=== PATIENT | female | born 1950 | race Caucasian/White ===

== ENCOUNTER 2018-10-09 21:42 | Inpatient (IN) | payer MEDICARE, OTHER ==
[~2018-10-09] VITALS: Ht 152.4 cm; Wt 69.5 kg
[~2018-10-09 21:42] MED LIST: ASPI325T32; BENA5TAB33; CITRACAL; CLOP75TA19; EZET10TA31; GLYB5TAB; METO-448; NITR0.4T32; SIMV40TA3
[2018-10-09] MEDS ORDERED: SOD CHLORIDE 0.9% 500 ML IV STA (21:48)
[2018-10-09] MEDS ORDERED: LIDOCAINE/MYLANTA 40 ML BTL PO ONE (23:30)
[2018-10-10] VITALS (11 sets, daily range): BP systolic 128–139; BP diastolic 68–83; PULSE 69–81; RESP 18–19
[2018-10-10] MEDS ORDERED: MTF1000T PO (00:03)
[2018-10-10] MEDS ORDERED: LOSA25TA12 PO (00:03)
[2018-10-10] MEDS ORDERED: ASPI-535 PO (00:03)
[2018-10-10] MEDS ORDERED: SITA100T11 PO (00:03)
[2018-10-10] MEDS ORDERED: METO-335 PO (00:25)
[2018-10-10] MEDS ORDERED: PRAS5TAB3 PO (00:25)
[2018-10-10] MEDS ORDERED: CRES20 PO (00:26)
[2018-10-10] MEDS ORDERED: FLUT16SP17 NASAL (00:26)
--- NOTE | 2018-10-10 00:47 | ERD ---
ER Documentation Chief Complaint Chief Complaint bib ra from home for cpressure since morning, HPI Is a 68-year-old female brought in by rescue from home for chest pressure since this morning. Pain is mild to moderate intensity with no exacerbating alleviating factors. Denies fevers or chills. Denies any other current complaints. Patient does have history of coronary artery disease with stents in the past. Denies any other current issues ROS All systems reviewed and are negative except as per history of present illness. Medications Home Meds Reported Medications Fluticasone Propionate* (Fluticasone Propionate* Nasal) 50 Mcg/[place] - 16 Gm [place].susp, 1 SPRAY NASAL BID, #1 BOTTLE TO EACH NOSTRIL 10/10/18 Rosuvastatin Calcium* (Crestor*) 20 Mg Tablet, 20 MG PO QHS, #30 TAB 10/10/18 Metoprolol Succinate* (Toprol XL*) 25 Mg Tab.sr.24h, 25 MG PO DAILY, #30 TAB 10/10/18 Prasugrel Hydrochloride* (Effient*) 5 Mg Tablet, 5 MG PO DAILY, TAB 10/10/18 Aspirin Ec (Aspir 81) 81 Mg Tablet.dr, 81 MG PO DAILY, #30 TAB 10/10/18 Sitagliptin* (Januvia*) 100 Mg Tablet, 100 MG PO DAILY, #30 TAB 10/10/18 Losartan Potassium* (Losartan Potassium*) 25 Mg Tablet, 25 MG PO DAILY, TAB 10/10/18 Metformin* (Glucophage*) 1,000 Mg Tablet, 1000 MG PO BID, #60 TAB 10/10/18 Clopidogrel Bisulfate (Plavix) 75 Mg Tablet 07/21/10 Discontinued Reported Medications Nitroglycerin* (Nitroglycerin* SL) 0.4 Mg Tab.subl 07/21/10 Benazepril Hcl* (Benazepril Hcl*) 5 Mg Tablet 07/21/10 Glyburide* (Diabeta*) 5 Mg Tablet 07/21/10 Metoprolol Tartrate* (Lopressor*) 25 Mg Tab 07/21/10 Aspirin (Aspir-Nati) 325 Mg Tablet.dr 07/21/10 Calcium Citrate (Citracal) 950 Mg Tab 07/21/10 Simvastatin (Simvastatin) 40 Mg Tablet 07/21/10 Ezetimibe* (Zetia*) 10 Mg Tablet 07/21/10 Allergies Allergies: Coded Allergies: No Known Allergy (Unverified , 10/09/18) PMhx/Soc History of Surgery: No Anesthesia Reaction: No Hx Neurological Disorder: No Hx Respiratory Disorders: No Hx Cardiac Disorders: Yes (MT, HTN, HYPERLIPIDEMIA) Hx Psychiatric Problems: No Hx Miscellaneous Medical Probl: No Hx Alcohol Use: No Hx Substance Use: No Hx Tobacco Use: No Smoking Status: Never smoker Physical Exam Vitals Vital Signs Date Temp Pulse Resp B/P (MAP) Pulse Ox O2 O2 Flow FiO2 Time Delivery Rate 10/10/18 69 17 111/63 98 Nasal 2.0 00:00 (79) Cannula 10/09/18 65 16 126/83 98 Room Air 22:00 (97) 10/09/18 98.1 71 19 126/89 100 21:48 (101) Physical Exam Const: No acute distress Head: Atraumatic Eyes: Normal Conjunctiva ENT: Normal External Ears, Nose and Mouth. Neck: Full range of motion. No meningismus. Resp: Clear to auscultation bilaterally Cardio: Regular rate and rhythm, no murmurs Abd: Soft, non tender, non distended. Normal bowel sounds Skin: No petechiae or rashes Back: No midline or flank tenderness Ext: No cyanosis, or edema Neur: Awake and alert Psych: Normal Mood and Affect Result Diagram: 10/09/18215310/09/182153 Results 24 hrs Laboratory Tests Test 10/09/18 21:54 White Blood Count 9.7 10^3/ul Red Blood Count 4.07 10^6/ul Hemoglobin 12.4 g/dl Hematocrit 37.5 % Mean Corpuscular Volume 92.1 fl Mean Corpuscular Hemoglobin 30.5 pg Mean Corpuscular Hemoglobin Concent 33.1 g/dl Red Cell Distribution Width 12.2 % Platelet Count 179 10^3/UL Mean Platelet Volume 10.2 fl Immature Granulocytes % 0.300 % Neutrophils % 48.5 % Lymphocytes % 40.9 % Monocytes % 6.3 % Eosinophils % 3.6 % Basophils % 0.4 % Nucleated Red Blood Cells % 0.0 /100WBC Immature Granulocytes # 0.030 10^3/ul Neutrophils # 4.7 10^3/ul Lymphocytes # 4.0 10^3/ul Monocytes # 0.6 10^3/ul Eosinophils # 0.4 10^3/ul Basophils # 0.0 10^3/ul Nucleated Red Blood Cells # 0.0 10^3/ul Sodium Level 140 mmol/L Potassium Level 4.0 mmol/L Chloride Level 101 mmol/L Carbon Dioxide Level 28 mmol/L Anion Gap 11 Blood Urea Nitrogen 16 mg/dl Creatinine 0.80 mg/dl Est Glomerular Filtrat Rate mL/min > 60 mL/min Glucose Level 108 mg/dl Calcium Level 9.7 mg/dl Total Bilirubin 0.5 mg/dl Direct Bilirubin 0.00 mg/dl Indirect Bilirubin 0.5 mg/dl Aspartate Amino Transf (AST/SGOT) 22 IU/L Alanine Aminotransferase (ALT/SGPT) 24 IU/L Alkaline Phosphatase 66 IU/L Troponin I < 0.012 ng/ml B-Type Natriuretic Peptide 305 PG/ML Total Protein 7.1 g/dl Albumin 4.4 g/dl Globulin 2.70 g/dl Albumin/Globulin Ratio 1.62 Lipase 143 U/L Current Medications Medications Dose Sig/Bowen Start Time Status Last (Trade) Ordered Route PRN Stop Time Admin Dose Reason Admin Sodium 500 ml @ Q1H STAT 10/09/18 DC 10/09/18 Chloride 500 mls/hr IV 21:48 22:15 10/09/18 22:47 40 ml ONCE ONCE 10/09/18 DC 10/09/18 Miscellaneous PO 23:30 23:30 Medication 10/09/18 23:31 (Gi Cocktail (2)) Procedures/MDM EKG: Rate/Rhythm: [Normal Sinus Rhythm] QRS, ST, T-waves: [No changes consistent w/ acute ischemia] Impression: [No evidence of ischemia or arrhythmia] Chest X-ray 1V Interpreted by me: Soft Tissue: No acute abnormalities Bones: No acute abnormalities Mediastinum/Cardiac Silhouette/Lungs: [No acute abnormalities] Medical decision making: Patient's symptoms are concerning for cardiac cause will require inpatient workup and continuous monitoring. Further w/u for ischemia, arrhythmia, PE or dissection will be deferred to the inpatient team. Accepting Care Team: Current data and ongoing care discussed. Time: 12:30 AM Primary Provider: Hospitalist Consulting: Deferred to inpatient team Outstanding Data: none Departure Diagnosis: Primary Impression: Chest pain Chest pain type: unspecified Qualified Codes: R07.9 - Chest pain, un specified Condition: Serious DARYA FLORES October 10, 2018 00:47
[2018-10-10] MEDS ORDERED: NITROGLYCERIN (SL) 0.4 MG TAB SL PRN (02:00)
[2018-10-10] MEDS ORDERED: ACETAMINOPHEN 325 MG TAB PO PRN (02:00)
[2018-10-10] MEDS ORDERED: ALBUTEROL/IPRATROPIUM (NEB) 3 ML AMP HHN PRN (02:00)
[2018-10-10] MEDS ORDERED: NACL 0.9% 3 ML SYG IV SCH (02:00)
[2018-10-10] MEDS ORDERED: ONDANSETRON 4 MG INJ IV PRN (02:00)
[2018-10-10] MEDS ORDERED: ACETAMINOPHEN 325 MG TAB ONE (02:07)
[2018-10-10] MEDS ORDERED: DEXTROSE 50% 50 ML SYRINGE IV PRN ×2 (04:00)
[2018-10-10] MEDS ORDERED: GLUCOSE GEL 15 GRAM TUBE BUCCAL PRN (04:00)
[2018-10-10] MEDS ORDERED: GLUCOSE GEL 15 GRAM TUBE PO PRN ×2 (04:00)
[2018-10-10] MEDS ORDERED: GLUCAGON 1 MG INJ IM PRN (04:00)
[2018-10-10] MEDS ORDERED: morphine 4 MG/ML VIAL IV STA (05:09)
--- NOTE | 2018-10-10 06:33 | HP ---
Date/Time of Note Date/Time of Note DATE: 10/10/18 TIME: 06:26 Assessment/Plan VTE Prophylaxis Pharmacological prophylaxis: heparin Lines/Catheters IV Catheter Type (from Nrsg): Saline Lock Assessment/Plan Assessment/Plan 1. Chest pain: Rule out ACS -Pain was relieved after he was given sublingual nitro and aspirin by EMS -Monitor on telemetry unit -Continue home dual antiplatelet, ARB, statin. As needed nitro. Heart rate has been in the 60s, therefore no beta-terrell at this time -Serial troponin -2D echo and cardiology consult -Pneumonia as a cause of chest pain is a possibility since chest x-ray does show Right perihilar consolidation and mild pulmonary vascular congestion. Given the fact that chest pain responded well to nitro however suggests a cardiac etiology Mild pulmonary vascular congestion. 2. History of CAD with stent: See #1 3. Headache: Follow-up head CT 4. History of hemorrhagic stroke, per patient: Diagnosed at [facility] in 2018 -Follow-up head CT. See #3 5. Right perihilar consolidation -Empiric IV antibiotic -Consider chest CT for further evaluation 6. History of dyslipidemia: Check fasting lipid. Continue statin and fenofibrate 7. Type 2 diabetes: Check A1c. Continue home med Result Diagram: 10/09/18215310/09/182153 Results 24hrs Laboratory Tests Test 10/09/18 21:54 10/10/18 02:34 White Blood Count 9.7 Red Blood Count 4.07 L Hemoglobin 12.4 Hematocrit 37.5 Mean Corpuscular Volume 92.1 Mean Corpuscular Hemoglobin 30.5 Mean Corpuscular Hemoglobin Concent 33.1 Red Cell Distribution Width 12.2 Platelet Count 179 Mean Platelet Volume 10.2 Immature Granulocytes % 0.300 Neutrophils % 48.5 Lymphocytes % 40.9 Monocytes % 6.3 Eosinophils % 3.6 Basophils % 0.4 Nucleated Red Blood Cells % 0.0 Immature Granulocytes # 0.030 Neutrophils # 4.7 Lymphocytes # 4.0 H Monocytes # 0.6 Eosinophils # 0.4 Basophils # 0.0 Nucleated Red Blood Cells # 0.0 Sodium Level 140 Potassium Level 4.0 Chloride Level 101 Carbon Dioxide Level 28 Anion Gap 11 Blood Urea Nitrogen 16 Creatinine 0.80 Est Glomerular Filtrat Rate mL/min > 60 Glucose Level 108 Calcium Level 9.7 Total Bilirubin 0.5 Direct Bilirubin 0.00 Indirect Bilirubin 0.5 Aspartate Amino Transf (AST/SGOT) 22 Alanine Aminotransferase (ALT/SGPT) 24 Alkaline Phosphatase 66 Troponin I < 0.012 0.032 B-Type Natriuretic Peptide 305 H Total Protein 7.1 Albumin 4.4 Globulin 2.70 Albumin/Globulin Ratio 1.62 Lipase 143 Creatine Kinase 44 Creatine Kinase Index 1.5 Creatinine Kinase MB (Mass) 0.65 HPI/ROS Admit Date/Time Admit Date/Time October 10, 2018 at 00:35 Hx of Present Illness This is a 68-year-old male with a history of hypertension, type 2 diabetes, dyslipidemia, CAD with stent who was brought to the ER for chest pain. Chest pain started in the morning and described as pressure-like pain and is nonradiating. Patient also reported shortness of breath. During my questioning, she also complains of headache. She told me that she was diagnosed with stroke and "blood in my brain"at [facility] in 2018. Denied any focal weakness, slurred speech, facial droop. When EMS arrived he was given a sublingual nitro and aspirin was complete relief of chest pain. When presented to the ER, vitals were stable. EKG without ST-T wave abnormalities and first troponin negative. Chest x-ray shows right perihilar consolidation and mild pulmonary vascular congestion. PMH/Family/Social Past Medical History Medical History: other (See HPI) Medications Current Medications IV Flush (NS 3 ml) 3 ml PER PROTOCOL IV ; Start 10/10/18 at 02:00 Ondansetron HCl (Zofran Inj) 4 mg Q6H PRN IV NAUSEA/VOMITING; Start 10/10/18 at 02:00 Nitroglycerin (Nitroglycerin (Sl Tab) 0.4 Mg) 1 tab Q5M PRN SL .CHEST PAIN; St art 10/10/18 at 02:00 Acetaminophen (Tylenol Tab) 650 mg Q6H PRN PO .PAIN 1-3 OR TEMP Last administe red on 10/10/18at 04:35; Admin Dose 650 MG; Start 10/10/18 at 02:00 Enoxaparin Sodium (Lovenox) 40 mg DAILY SC ; Start 10/10/18 at 09:00 Albuterol/ Ipratropium (Duoneb) 3 ml Q2H RESP THERAPY PRN HHN SHORTNESS OF BREATH; Start 10/10/18 at 02:00 Aspirin (Halfprin) 81 mg DAILY PO ; Start 10/10/18 at 09:00 Clopidogrel Bisulfate (plaVIX) 75 mg DAILY PO ; Start 10/10/18 at 09:00 Fluticasone Propionate (Flonase 0.05% Nasal) 1 spray BID NASAL ; Start 10/10/18 at 09:00 Losartan Potassium (Cozaar) 25 mg DAILY PO ; Start 10/10/18 at 09:00 Metformin HCl (Glucophage) 1,000 mg BID WITH MEALS PO ; Start 10/10/18 at 07:55 Metoprolol Succinate (Toprol Xl) 25 mg DAILY PO ; Start 10/10/18 at 09:00 Atorvastatin Calcium (Lipitor) 80 mg DAILY@21 PO ; Start 10/10/18 at 21:00 Linagliptin (Tradjenta) 5 mg DAILY PO ; Start 10/10/18 at 09:00 Diagnostic Test (Pha) (Accu-Chek) 1 ea AC MEALS AND BEDTIME XX ; Start 10/10/18 at 07:25 Miscellaneous Information 1 ea NOTE XX ; Start 10/10/18 at 04:00 Glucose (Glutose) 15 gm Q15M PRN PO DECREASED GLUCOSE; Start 10/10/18 at 04:00 Glucose (Glutose) 22.5 gm Q15M PRN PO DECREASED GLUCOSE; Start 10/10/18 at 04:00 Dextrose (D50w Syringe) 25 ml Q15M PRN IV DECREASED GLUCOSE; Start 10/10/18 at 04:00 Dextrose (D50w Syringe) 50 ml Q15M PRN IV DECREASED GLUCOSE; Start 10/10/18 at 04:00 Glucagon (Glucagen) 1 mg Q15M PRN IM DECREASED GLUCOSE; Start 10/10/18 at 04:00 Glucose (Glutose) 15 gm Q15M PRN BUCCAL DECREASED GLUCOSE; Start 10/10/18 at 04:00 Coded Allergies: No Known Allergy (Unverified , 10/09/18) Past Surgical History Past Surgical Hx: other (See HPI) Family History Significant Family History: no pertinent family hx Social History Alcohol Use: none Smoking Status: Never smoker Drug Use: none Exam/Review of Systems Vital Signs Vitals Vital Signs Date Temp Pulse Resp B/P (MAP) Pulse Ox O2 O2 Flow FiO2 Time Delivery Rate 10/10/18 96 21 06:21 10/10/18 98.5 04:35 10/10/18 70 18 129/74 04:04 (92) 10/10/18 Nasal 2.0 01:21 Cannula Exam Constitutional: other (Mild distress due to pain) Head: normocephalic, atraumatic Eyes: EOMI, PERRL Respiratory: clear to auscultation, normal air movement Cardiovascular: regular rate and rhythm, nl pulses Gastrointestinal: soft, non-tender Extremities: normal pulses DARYA TAM MD October 10, 2018 06:33
[2018-10-10] MEDS: ACCU-CHEK XX SCH ×4 (07:25→21:00)
[2018-10-10] MEDS ORDERED: metFORMIN 500 MG TAB PO SCH (07:55)
[2018-10-10] MEDS: CLOPIDOGREL 75 MG TAB PO SCH (08:21)
[2018-10-10] MEDS: ASPIRIN (EC) 81 MG TAB PO SCH (08:23)
[2018-10-10] MEDS: LOSARTAN 25 MG TAB PO SCH (08:23)
[2018-10-10] MEDS: FLUTICASONE 0.05% 16 GM NAS SPRAY NASAL SCH ×2 (08:36→21:38)
[2018-10-10] MEDS ORDERED: PRASUGREL HCL 5 MG TABLET PO SCH (09:00)
[2018-10-10] MEDS ORDERED: METOPROLOL (XL) 25 MG TAB PO SCH (09:00)
[2018-10-10] MEDS ORDERED: ENOXAPARIN 40 MG/0.4 ML SYG SC SCH (09:00)
[2018-10-10] MEDS ORDERED: LINAGLIPTIN 5 MG TABLET PO SCH (09:00)
--- NOTE | 2018-10-10 11:01 | RADRPT ---
Echocardiogram Report Patient Name: Gely PHELAN ID: [id number] : 1950 (68y 7m)Study Date: 10/10/2018 7:17:45 AM Gender: FAccession #: [id number] Tech: Tara Walsh [facility] Location: 51 Ref.Physician: DARYA TAM Height(Cm): BSA: Weight(Kg): Quality: AdequateOrder Physician: DARYA TAM Account #: Procedures: Echocardiographic Report: Transthoracic echocardiogram with complete 2D, M-Mode, and doppler examination. Indications: Chest Pain. Measurements: 2D/M Mode Doppler Measurement Value Normal Range Measurement Value Normal Range LVIDd 2D 3.2 [ 3.8 - 5.2 ] cm AV Peak Jared 1.3 [ 100.0 - 170.0 ] cm/sec LVIDs 2D 2.4 [ 2.2 - 3.5 ] cm AV Peak PG 7.0 [ 2.0 - 9.0 ] mmHg LVPWd 2D 1.1 [ 0.6 - 0.9 ] cm LVOT Peak Jared 1.0 [ 70.0 - 110.0 ] cm/sec IVSd 2D 1.1 [ 0.6 - 0.9 ] cm LVOT Peak PG 4.0 [ 2.0 - 6.0 ] mmHg AoR Diam 2D 2.9 [ 2.3 - 3.1 ] cm MV E Peak Jared 0.6 [ 60.0 - 130.0 ] cm/sec EDV 2D 41.3 [ 46.0 - 106.0 ] ml MV A Peak Jared 0.8 [ 100.0 - 120.0 ] cm/sec ESV 2D 20.0 [ 14.0 - 42.0 ] ml MV E/A 0.8 [ 0.8 - 1.5 ] ratio EF 2D 51.6 [ 54.0 - 74.0 ] percent MV Decel Time 187 [ 104 - 258 ] msec LA Dimen 2D 2.6 [ 2.7 - 3.8 ] cm MV E/A 0.8 [ 0.8 - 1.5 ] ratio Findings: Left Ventricle: Normal left ventricular systolic function. Normal left ventricular cavity size. Mild concentric left ventricular hypertrophy. Ejection fraction is visually estimated at 65 %. Tissue Doppler/Mitral Doppler indices are consistent with impaired relaxation (Stage I diastolic dysfunction). Right Ventricle: Normal right ventricular size. Normal right ventricular systolic function. Left Atrium: The left atrium is normal in size. Right Atrium: The right atrium is normal in size. Mitral Valve: Normal appearance and function of the mitral valve with trace physiologic regurgitation. Aortic Valve: No significant aortic stenosis or insufficiency. Aortic cusps appear mildly calcified. Tricuspid Valve: Normal appearance of the tricuspid valve. Unable to obtain RVSP due to minimal presence of tricuspid regurgitation. Pulmonic Valve: Pulmonic valve not well visualized. Pericardium: Normal pericardium with no significant pericardial effusion. Aorta: Normal aortic root. IVC: Normal size and normal respiratory collapse consistent with normal right atrial pressure. Conclusions: Normal left ventricular systolic function. Normal left ventricular cavity size. Mild concentric left ventricular hypertrophy. Ejection fraction is visually estimated at 65 %. Tissue Doppler/Mitral Doppler indices are consistent with impaired relaxation (Stage I diastolic dysfunction). No significant aortic stenosis or insufficiency. Aortic cusps appear mildly calcified. Normal appearance of the tricuspid valve. Unable to obtain RVSP due to minimal presence of tricuspid regurgitation. Pulmonic valve not well visualized. Electronically Signed By: Vinicio Gutiérrez 2018-10-10 11:00:52 PDT
--- NOTE | 2018-10-10 14:04 | PN ---
Date/Time of Note Date/Time of Note DATE: 10/10/18 TIME: 13:49 Assessment/Plan VTE Prophylaxis Risk score (from Ns)>0 risk: 3 SCD applied (from Ns): No SCD contraindicated: other Pharmacological prophylaxis: LMWH Lines/Catheters IV [facility] Saline Lock Assessment/Plan Hospital Course S: Patient is no complaint of headache symptoms, waiting to be seen by cardiology team. Brain scan results reviewed, no acute findings noted. O: VS- see below PE: Gen: Lying in bed, in mild distress Head: Atraumatic Eyes: Normal Conjunctiva ENT: Normal External Ears, Nose and Mouth. Neck: Full range of motion. No meningismus. Resp: Clear to auscultation bilaterally Cardio: Regular rate and rhythm, no murmurs Abd: Soft, non tender, non distended. Normal bowel sounds Ext: No cyanosis, or edema Neuro: No focal deficits Head CT: IMPRESSION: 1. 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 This causes significant star artifact. No obvious acute intracranial hemorrhage or acute territorial infarct is seen. 3. Age-related cortical and central atrophy and moderate to severe small vessel ischemic change. 4. Old bilateral basal ganglia lacunar infarcts. 5. Cerebral arterial sclerosis Assessment/Plan: 68-year-old female presents with: 1. Chest pain: Thus far troponins negative x3.-Pain was relieved after he was given sublingual nitro and aspirin by EMS -For now continue to monitor on telemetry unit -Continue home dual antiplatelet, ARB, statin. As needed nitro. Heart rate has been in the 60s, therefore no beta-terrell at this time -Follow-up results of 2D echo and recommendations from cardiology consult 2. History of CAD with stent: See #1 3. Headache: Symptoms still present, head CT did not show any acute findings -Monitor for now, continue pain medications as needed 4. History of hemorrhagic stroke, per patient: Diagnosed at [facility] in [address]. Brain [address] this admission shows interval coil embolization of right supraclinoid aneurysm. -Monitor for now, see #3 5. Right perihilar consolidation-seen on chest x-ray -For now continue empiric IV antibiotic -If worsens, consider chest CT for further evaluation 6. History of dyslipidemia: -Follow-up fasting lipid. -Continue statin and fenofibrate 7. Type 2 diabetes: A1c was 6.8, sugars are stable. -Continue home med Result Diagram: 10/10/18 0718 10/10/18 0718 Results 24hrs Laboratory Tests Test 10/09/18 21:54 10/10/18 02:34 10/10/18 07:18 10/10/18 08:20 White Blood Count 9.7 8.8 Red Blood Count 4.07 L 4.45 Hemoglobin 12.4 13.6 Hematocrit 37.5 41.1 Mean Corpuscular 92.1 92.4 Volume Mean Corpuscular 30.5 30.6 Hemoglobin Mean Corpuscular 33.1 33.1 Hemoglobin Concent Red Cell 12.2 12.3 Distribution Width Platelet Count 179 180 Mean Platelet Volume 10.2 10.4 Immature 0.300 0.500 H Granulocytes % Neutrophils % 48.5 57.5 Lymphocytes % 40.9 31.3 Monocytes % 6.3 6.8 Eosinophils % 3.6 3.4 Basophils % 0.4 0.5 Nucleated Red Blood 0.0 0.0 Cells % Immature 0.030 0.040 H Granulocytes # Neutrophils # 4.7 5.1 Lymphocytes # 4.0 H 2.8 Monocytes # 0.6 0.6 Eosinophils # 0.4 0.3 Basophils # 0.0 0.0 Nucleated Red Blood 0.0 0.0 Cells # Sodium Level 140 143 Potassium Level 4.0 4.5 Chloride Level 101 103 Carbon Dioxide Level 28 30 Anion Gap 11 10 Blood Urea Nitrogen 16 13 Creatinine 0.80 0.73 Est Glomerular > 60 > 60 Filtrat Rate mL/min Glucose Level 108 141 Calcium Level 9.7 9.9 Total Bilirubin 0.5 0.5 Direct Bilirubin 0.00 0.00 Indirect Bilirubin 0.5 0.5 Aspartate Amino 22 22 Transf (AST/SGOT) Alanine 24 25 Aminotransferase (AL T/SGPT) Alkaline Phosphatase 66 79 Troponin I < 0.012 0.032 0.092 B-Type Natriuretic 305 H Peptide Total Protein 7.1 7.5 Albumin 4.4 4.5 Globulin 2.70 3.00 Albumin/Globulin 1.62 1.50 Ratio Lipase 143 Creatine Kinase 44 46 Creatine Kinase 1.5 2.2 Index Creatinine Kinase MB 0.65 1.02 (Mass) Hemoglobin A1c 6.8 H Magnesium Level 2.3 Triglycerides Level 168 H Cholesterol Level 141 LDL Cholesterol, 62 Calculated HDL Cholesterol 45 Cholesterol/HDL 3.1 Ratio Thyroid Stimulating 9.730 H Hormone (TSH) Bedside Glucose 133 Test 10/10/18 11:43 Bedside Glucose 115 Exam/Review of Systems Exam Vitals Vital Signs Date Temp Pulse Resp B/P (MAP) Pulse Ox O2 O2 Flow FiO2 Time Delivery Rate 10/10/18 74 12:00 10/10/18 98.3 18 139/83 95 11:23 (101) 10/10/18 21 06:21 10/10/18 Nasal 2.0 01:21 Cannula Results Results 24hrs Laboratory Tests Test 10/09/18 21:54 10/10/18 02:34 10/10/18 07:18 10/10/18 08:20 White Blood Count 9.7 8.8 Red Blood Count 4.07 L 4.45 Hemoglobin 12.4 13.6 Hematocrit 37.5 41.1 Mean Corpuscular 92.1 92.4 Volume Mean Corpuscular 30.5 30.6 Hemoglobin Mean Corpuscular 33.1 33.1 Hemoglobin Concent Red Cell 12.2 12.3 Distribution Width Platelet Count 179 180 Mean Platelet Volume 10.2 10.4 Immature 0.300 0.500 H Granulocytes % Neutrophils % 48.5 57.5 Lymphocytes % 40.9 31.3 Monocytes % 6.3 6.8 Eosinophils % 3.6 3.4 Basophils % 0.4 0.5 Nucleated Red Blood 0.0 0.0 Cells % Immature 0.030 0.040 H Granulocytes # Neutrophils # 4.7 5.1 Lymphocytes # 4.0 H 2.8 Monocytes # 0.6 0.6 Eosinophils # 0.4 0.3 Basophils # 0.0 0.0 Nucleated Red Blood 0.0 0.0 Cells # Sodium Level 140 143 Potassium Level 4.0 4.5 Chloride Level 101 103 Carbon Dioxide Level 28 30 Anion Gap 11 10 Blood Urea Nitrogen 16 13 Creatinine 0.80 0.73 Est Glomerular > 60 > 60 Filtrat Rate mL/min Glucose Level 108 141 Calcium Level 9.7 9.9 Total Bilirubin 0.5 0.5 Direct Bilirubin 0.00 0.00 Indirect Bilirubin 0.5 0.5 Aspartate Amino 22 22 Transf (AST/SGOT) Alanine 24 25 Aminotransferase (AL T/SGPT) Alkaline Phosphatase 66 79 Troponin I < 0.012 0.032 0.092 B-Type Natriuretic 305 H Peptide Total Protein 7.1 7.5 Albumin 4.4 4.5 Globulin 2.70 3.00 Albumin/Globulin 1.62 1.50 Ratio Lipase 143 Creatine Kinase 44 46 Creatine Kinase 1.5 2.2 Index Creatinine Kinase MB 0.65 1.02 (Mass) Hemoglobin A1c 6.8 H Magnesium Level 2.3 Triglycerides Level 168 H Cholesterol Level 141 LDL Cholesterol, 62 Calculated HDL Cholesterol 45 Cholesterol/HDL 3.1 Ratio Thyroid Stimulating 9.730 H Hormone (TSH) Bedside Glucose 133 Test 10/10/18 11:43 Bedside Glucose 115 Medications Medication Current Medications IV Flush (NS 3 ml) 3 ml PER PROTOCOL IV ; Start 10/10/18 at 02:00 Ondansetron HCl (Zofran Inj) 4 mg Q6H PRN IV NAUSEA/VOMITING; Start 10/10/18 at 02:00 Nitroglycerin (Nitroglycerin (Sl Tab) 0.4 Mg) 1 tab Q5M PRN SL .CHEST PAIN; Start 10/10/18 at 02:00 Acetaminophen (Tylenol Tab) 650 mg Q6H PRN PO .PAIN 1-3 OR TEMP Last administered on 10/10/18at 04:35; Admin Dose 650 MG; Start 10/10/18 at 02:00 Enoxaparin Sodium (Lovenox) 40 mg DAILY SC ; Start 10/10/18 at 09:00 Albuterol/ Ipratropium (Duoneb) 3 ml Q2H RESP THERAPY PRN HHN SHORTNESS OF BREATH; Start 10/10/18 at 02:00 Aspirin (Halfprin) 81 mg DAILY PO Last administered on 10/10/18at 08:23; Admin Dose 81 MG; Start 10/10/18 at 09:00 Clopidogrel Bisulfate (plaVIX) 75 mg DAILY PO Last administered on 10/10/18at 08:21; Admin Dose 75 MG; Start 10/10/18 at 09:00 Fluticasone Propionate (Flonase 0.05% Nasal) 1 spray BID NASAL ; Start 10/10/18 at 09:00 Losartan Potassium (Cozaar) 25 mg DAILY PO Last administered on 10/10/18at 08:23; Admin Dose 25 MG; Start 10/10/18 at 09:00 Metformin HCl (Glucophage) 1,000 mg BID WITH MEALS PO Last administered on 10/10/18at 08:22; Admin Dose 1,000 MG; Start 10/10/18 at 07:55 Metoprolol Succinate (Toprol Xl) 25 mg DAILY PO Last administered on 10/10/18at 08:23; Admin Dose 25 MG; Start 10/10/18 at 09:00 Atorvastatin Calcium (Lipitor) 80 mg DAILY@21 PO ; Start 10/10/18 at 21:00 Linagliptin (Tradjenta) 5 mg DAILY PO Last administered on 10/10/18at 08:23; Admin Dose 5 MG; Start 10/10/18 at 09:00 Diagnostic Test (Pha) (Accu-Chek) 1 ea AC MEALS AND BEDTIME XX Last administered on 10/10/18at 11:44; Admin Dose 1 EA; Start 10/10/18 at 07:25 Miscellaneous Information 1 ea NOTE XX ; Start 10/10/18 at 04:00 Glucose (Glutose) 15 gm Q15M PRN PO DECREASED GLUCOSE; Start 10/10/18 at 04:00 Glucose (Glutose) 22.5 gm Q15M PRN PO DECREASED GLUCOSE; Start 10/10/18 at 04:00 Dextrose (D50w Syringe) 25 ml Q15M PRN IV DECREASED GLUCOSE; Start 10/10/18 at 04:00 Dextrose (D50w Syringe) 50 ml Q15M PRN IV DECREASED GLUCOSE; Start 10/10/18 at 04:00 Glucagon (Glucagen) 1 mg Q15M PRN IM DECREASED GLUCOSE; Start 10/10/18 at 04:00 Glucose (Glutose) 15 gm Q15M PRN BUCCAL DECREASED GLUCOSE; Start 10/10/18 at 04:00 Miscellaneous Information (* Miscellaneous Pharmacy Order) Discontinue current oral sulfonylur... ONCE ONCE XX ; Start 10/10/18 at 14:00; Stop 10/10/18 at 14:01; Status UNV Diagnostic Test (Pha) (Accu-Chek) 1 ea 02 XX ; Start 10/11/18 at 02:00; Status UNV Miscellaneous Information (* Miscellaneous Pharmacy Order) HYPOGLYCEMIA PROTOCOL w... ONCE ONCE XX ; Start 10/10/18 at 14:00; Stop 10/10/18 at 14:01; Status U NV Insulin Aspart (Novolog Insulin Pen) NOVOLOG *MILD* ALGORITHM WITH MEALS BEDTIME SC ; Start 10/10/18 at 17:55; Status UNV Miscellaneous Information (* Miscellaneous Pharmacy Order) Discontinue all previ... ONCE ONCE XX ; Start 10/10/18 at 14:00; Stop 10/10/18 at 14:01; Status UNV GRISEL REID October 10, 2018 14:04
--- NOTE | 2018-10-10 16:58 | CONS ---
Assessment/Plan Assessment/Plan Hospital Course (Demo Recall) Chest pain: Symptoms concerning for unstable angina but some atypical features too and she had a normal Lexiscan 05/09 during which time she had also been having chest pain. Echo with preserved EF. EKG was unremarkable and trops x 3 have been within lab normal but .01-->.03-->.09. Will check one more. If rules in cath in am. If normal, cardiac CTA. Pt and family agreeable. 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 Family denies actual bleeding but she had stroke like symptoms HTN DM HL -stat trop. If positive, cath tomorrow -if trop negative, cardiac CTA -metoprolol 25mg BID -continue ASA and plavix -lipitor 80mg -losartan 25mg Consultation Date/Type/Reason Admit Date/Time October 10, 2018 at 00:35 Date of Consultation: October 10, 2018 Type of Consult Cardiology Reason for Consultation Chest pain Requesting Provider: GRISEL REID Date/Time of Note DATE: 10/10/18 TIME: 16:47 Hx of Present Illness 68 yo F with a h/o CAD s/p NSTEMI/PCI of Cx 2010 and known distal LAD BACK GRINDER, CVA with cerebral aneurysm s/p coiling 11/2017 at [facility], HTN, DM, HL, who presented with chest pain. She is a pt of Dr. Ceballos as outpt. She has been having on and off chest pain for several months and Lexiscan 05/09 showed normal EF and no ischemia. Over the past 3 weeks she has been having increasing episodes of chest pressure which occur both with exertion and rest. She walks around her apartment and has chest pain walking up 10 steps and recently had chest pain while dancing at a wedding. She has decreased her activities due to this. She had chest pain at rest yesterday. EKG was unremarkable and trops x 3 have been within lab normal but .01-->.03-->.09. No chest pain at this time. per HPI Past Medical History per HPI Home Meds Reported Medications Fluticasone Propionate* (Fluticasone Propionate* Nasal) 50 Mcg/[place] - 16 Gm [place].susp, 1 SPRAY NASAL BID, #1 BOTTLE TO EACH NOSTRIL 10/10/18 Rosuvastatin Calcium* (Crestor*) 20 Mg Tablet, 20 MG PO QHS, #30 TAB 10/10/18 Metoprolol Succinate* (Toprol XL*) 25 Mg Tab.sr.24h, 25 MG PO DAILY, #30 TAB 10/10/18 Prasugrel Hydrochloride* (Effient*) 5 Mg Tablet, 5 MG PO DAILY, TAB 10/10/18 Aspirin Ec (Aspir 81) 81 Mg Tablet.dr, 81 MG PO DAILY, #30 TAB 10/10/18 Sitagliptin* (Januvia*) 100 Mg Tablet, 100 MG PO DAILY, #30 TAB 10/10/18 Losartan Potassium* (Losartan Potassium*) 25 Mg Tablet, 25 MG PO DAILY, TAB 10/10/18 Metformin* (Glucophage*) 1,000 Mg Tablet, 1000 MG PO BID, #60 TAB 10/10/18 Clopidogrel Bisulfate (Plavix) 75 Mg Tablet 07/21/10 Discontinued Reported Medications Nitroglycerin* (Nitroglycerin* SL) 0.4 Mg Tab.subl 07/21/10 Benazepril Hcl* (Benazepril Hcl*) 5 Mg Tablet 07/21/10 Glyburide* (Diabeta*) 5 Mg Tablet 07/21/10 Metoprolol Tartrate* (Lopressor*) 25 Mg Tab 07/21/10 Aspirin (Aspir-Nati) 325 Mg Tablet. 07/21/10 Calcium Citrate (Citracal) 950 Mg Tab 07/21/10 Simvastatin (Simvastatin) 40 Mg Tablet 07/21/10 Ezetimibe* (Zetia*) 10 Mg Tablet 07/21/10 Medications Current Medications IV Flush (NS 3 ml) 3 ml PER PROTOCOL IV ; Start 10/10/18 at 02:00 Ondansetron HCl (Zofran Inj) 4 mg Q6H PRN IV NAUSEA/VOMITING; Start 10/10/18 at 02:00 Nitroglycerin (Nitroglycerin (Sl Tab) 0.4 Mg) 1 tab Q5M PRN SL .CHEST PAIN; Start 10/10/18 at 02:00 Acetaminophen (Tylenol Tab) 650 mg Q6H PRN PO .PAIN 1-3 OR TEMP Last administered on 10/10/18at 04:35; Admin Dose 650 MG; Start 10/10/18 at 02:00 Enoxaparin Sodium (Lovenox) 40 mg DAILY SC ; Start 10/10/18 at 09:00 Albuterol/ Ipratropium (Duoneb) 3 ml Q2H RESP THERAPY PRN HHN SHORTNESS OF BREATH; Start 10/10/18 at 02:00 Aspirin (Halfprin) 81 mg DAILY PO Last administered on 10/10/18at 08:23; Admin Dose 81 MG; Start 10/10/18 at 09:00 Clopidogrel Bisulfate (plaVIX) 75 mg DAILY PO Last administered on 10/10/18at 08:21; Admin Dose 75 MG; Start 10/10/18 at 09:00 Fluticasone Propionate (Flonase 0.05% Nasal) 1 spray BID NASAL ; Start 10/10/18 at 09:00 Losartan Potassium (Cozaar) 25 mg DAILY PO Last administered on 10/10/18at 08:23; Admin Dose 25 MG; Start 10/10/18 at 09:00 Metoprolol Succinate (Toprol Xl) 25 mg DAILY PO Last administered on 10/10/18at 08:23; Admin Dose 25 MG; Start 10/10/18 at 09:00 Atorvastatin Calcium (Lipitor) 80 mg DAILY@21 PO ; Start 10/10/18 at 21:00 Diagnostic Test (Pha) (Accu-Chek) 1 ea AC MEALS AND BEDTIME XX Last administered on 10/10/18at 11:44; Admin Dose 1 EA; Start 10/10/18 at 07:25 Miscellaneous Information 1 ea NOTE XX ; Start 10/10/18 at 04:00 Glucose (Glutose) 15 gm Q15M PRN PO DECREASED GLUCOSE; Start 10/10/18 at 04:00 Glucose (Glutose) 22.5 gm Q15M PRN PO DECREASED GLUCOSE; Start 10/10/18 at 04:00 Dextrose (D50w Syringe) 25 ml Q15M PRN IV DECREASED GLUCOSE; Start 10/10/18 at 04:00 Dextrose (D50w Syringe) 50 ml Q15M PRN IV DECREASED GLUCOSE; Start 10/10/18 at 04:00 Glucagon (Glucagen) 1 mg Q15M PRN IM DECREASED GLUCOSE; Start 10/10/18 at 04:00 Glucose (Glutose) 15 gm Q15M PRN BUCCAL DECREASED GLUCOSE; Start 10/10/18 at 04:00 Diagnostic Test (Pha) (Accu-Chek) 1 ea 02 XX ; Start 10/11/18 at 02:00 Insulin Aspart (Novolog Insulin Pen) NOVOLOG *MILD* ALGORITHM WITH MEALS BEDTIME SC ; Start 10/10/18 at 17:55 Allergies: Coded Allergies: No Known Allergy (Unverified , 10/09/18) Past Surgical History Past Surgical Hx: other (See HPI) Social History Alcohol Use: none Smoking Status: Never smoker Drug Use: none Exam/Review of Systems Vital Signs Vitals Vital Signs Date Temp Pulse Resp B/P (MAP) Pulse Ox O2 O2 Flow FiO2 Time Delivery Rate 10/10/18 74 12:00 10/10/18 98.3 18 139/83 95 11:23 (101) 10/10/18 21 06:21 10/10/18 Nasal 2.0 01:21 Cannula Exam Constitutional: alert, oriented Psych: no complaints, nl mood/affect Head: normocephalic, atraumatic Neck: supple; No jvd Respiratory: clear to auscultation; No crackles/rales, No diminished breath sounds Cardiovascular: regular rate and rhythm; No edema, No systolic murmur Gastrointestinal: soft, non-tender; No distended Neurological: nl mental status, nl speech Labs Result Diagram: 10/10/1818 10/10/18 0718 Results 24hrs Laboratory Tests Test 10/09/18 21:54 10/10/18 02:34 10/10/18 07:18 10/10/18 08:20 White Blood Count 9.7 8.8 Red Blood Count 4.07 L 4.45 Hemoglobin 12.4 13.6 Hematocrit 37.5 41.1 Mean Corpuscular 92.1 92.4 Volume Mean Corpuscular 30.5 30.6 Hemoglobin Mean Corpuscular 33.1 33.1 Hemoglobin Concent Red Cell 12.2 12.3 Distribution Width Platelet Count 179 180 Mean Platelet Volume 10.2 10.4 Immature 0.300 0.500 H Granulocytes % Neutrophils % 48.5 57.5 Lymphocytes % 40.9 31.3 Monocytes % 6.3 6.8 Eosinophils % 3.6 3.4 Basophils % 0.4 0.5 Nucleated Red Blood 0.0 0.0 Cells % Immature 0.030 0.040 H Granulocytes # Neutrophils # 4.7 5.1 Lymphocytes # 4.0 H 2.8 Monocytes # 0.6 0.6 Eosinophils # 0.4 0.3 Basophils # 0.0 0.0 Nucleated Red Blood 0.0 0.0 Cells # Sodium Level 140 143 Potassium Level 4.0 4.5 Chloride Level 101 103 Carbon Dioxide Level 28 30 Anion Gap 11 10 Blood Urea Nitrogen 16 13 Creatinine 0.80 0.73 Est Glomerular > 60 > 60 Filtrat Rate mL/min Glucose Level 108 141 Calcium Level 9.7 9.9 Total Bilirubin 0.5 0.5 Direct Bilirubin 0.00 0.00 Indirect Bilirubin 0.5 0.5 Aspartate Amino 22 22 Transf (AST/SGOT) Alanine 24 25 Aminotransferase (AL T/SGPT) Alkaline Phosphatase 66 79 Troponin I < 0.012 0.032 0.092 B-Type Natriuretic 305 H Peptide Total Protein 7.1 7.5 Albumin 4.4 4.5 Globulin 2.70 3.00 Albumin/Globulin 1.62 1.50 Ratio Lipase 143 Creatine Kinase 44 46 Creatine Kinase 1.5 2.2 Index Creatinine Kinase MB 0.65 1.02 (Mass) Hemoglobin A1c 6.8 H Magnesium Level 2.3 Triglycerides Level 168 H Cholesterol Level 141 LDL Cholesterol, 62 Calculated HDL Cholesterol 45 Cholesterol/HDL 3.1 Ratio Thyroid Stimulating 9.730 H Hormone (TSH) Bedside Glucose 133 Test 10/10/18 11:43 Bedside Glucose 115 Medications Medications Current Medications IV Flush (NS 3 ml) 3 ml PER PROTOCOL IV ; Start 10/10/18 at 02:00 Ondansetron HCl (Zofran Inj) 4 mg Q6H PRN IV NAUSEA/VOMITING; Start 10/10/18 at 02:00 Nitroglycerin (Nitroglycerin (Sl Tab) 0.4 Mg) 1 tab Q5M PRN SL .CHEST PAIN; Start 10/10/18 at 02:00 Acetaminophen (Tylenol Tab) 650 mg Q6H PRN PO .PAIN 1-3 OR TEMP Last administered on 10/10/18at 04:35; Admin Dose 650 MG; Start 10/10/18 at 02:00 Enoxaparin Sodium (Lovenox) 40 mg DAILY SC ; Start 10/10/18 at 09:00 Albuterol/ Ipratropium (Duoneb) 3 ml Q2H RESP THERAPY PRN HHN SHORTNESS OF BREATH; Start 10/10/18 at 02:00 Aspirin (Halfprin) 81 mg DAILY PO Last administered on 10/10/18at 08:23; Admin Dose 81 MG; Start 10/10/18 at 09:00 Clopidogrel Bisulfate (plaVIX) 75 mg DAILY PO Last administered on 10/10/18at 08:21; Admin Dose 75 MG; Start 10/10/18 at 09:00 Fluticasone Propionate (Flonase 0.05% Nasal) 1 spray BID NASAL ; Start 10/10/18 at 09:00 Losartan Potassium (Cozaar) 25 mg DAILY PO Last administered on 10/10/18at 08:23; Admin Dose 25 MG; Start 10/10/18 at 09:00 Metoprolol Succinate (Toprol Xl) 25 mg DAILY PO Last administered on 10/10/18at 08:23; Admin Dose 25 MG; Start 10/10/18 at 09:00 Atorvastatin Calcium (Lipitor) 80 mg DAILY@21 PO ; Start 10/10/18 at 21:00 Diagnostic Test (Pha) (Accu-Chek) 1 ea AC MEALS AND BEDTIME XX Last administered on 10/10/18at 11:44; Admin Dose 1 EA; Start 10/10/18 at 07:25 Miscellaneous Information 1 ea NOTE XX ; Start 10/10/18 at 04:00 Glucose (Glutose) 15 gm Q15M PRN PO DECREASED GLUCOSE; Start 10/10/18 at 04:00 Glucose (Glutose) 22.5 gm Q15M PRN PO DECREASED GLUCOSE; Start 10/10/18 at 04:0 0 Dextrose (D50w Syringe) 25 ml Q15M PRN IV DECREASED GLUCOSE; Start 10/10/18 at 04:00 Dextrose (D50w Syringe) 50 ml Q15M PRN IV DECREASED GLUCOSE; Start 10/10/18 at 04:00 Glucagon (Glucagen) 1 mg Q15M PRN IM DECREASED GLUCOSE; Start 10/10/18 at 04:00 Glucose (Glutose) 15 gm Q15M PRN BUCCAL DECREASED GLUCOSE; Start 10/10/18 at 04:00 Diagnostic Test (Pha) (Accu-Chek) 1 ea 02 XX ; Start 10/11/18 at 02:00 Insulin Aspart (Novolog Insulin Pen) NOVOLOG *MILD* ALGORITHM WITH MEALS BEDTIME SC ; Start 10/10/18 at 17:55 SEAMSU HERNANDEZ October 10, 2018 16:57
[2018-10-10] MEDS ORDERED: METOPROLOL 25 MG TAB PO SCH (17:00)
[2018-10-10] MEDS: INSULIN ASPART [NOVOLOG] 3 ML PEN SC SCH ×2 (17:55→21:00)
[2018-10-10] MEDS ORDERED: HEPARIN 1000 UNITS/ML 10 ML INJ IV PRN (18:30)
[2018-10-10] MEDS ORDERED: HEPARIN 25000 UNITS/250 ML 250 ML IV SCH (19:30)
[2018-10-10] MEDS: ATORVASTATIN 80 MG TAB PO SCH (21:38)
[2018-10-11] VITALS (39 sets, daily range): BP systolic 97–136; BP diastolic 62–89; PULSE 60–96; RESP 17–31
[2018-10-11] MEDS: ACCU-CHEK XX SCH ×5 (02:00→20:37)
--- NOTE | 2018-10-11 07:01 | CONS ---
Assessment/Plan Assessment/Plan Hospital Course (Demo Recall) NSTEMI: Symptoms concerning for unstable angina even though she had a normal Lexiscan 05/09. 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 Family denies actual bleeding but she had stroke like symptoms HTN DM HL -cath this am -metoprolol succ 25mg daily -continue ASA and plavix -lipitor 80mg -losartan 25mg Consultation Date/Type/Reason Admit Date/Time October 10, 2018 at 00:35 Initial Consult Date 10/10/18 Type of Consult Cardiology Requesting Provider: GRISEL REID Date/Time of Note DATE: 10/11/18 TIME: 06:59 24 HR Interval Summary Free Text/Dictation Had mild headache yesterday before the heparin which she relates to her BP. This resolved even before starting heparin. No headache since. No chest pain Trop increased to 0.19 Exam/Review of Systems Vital Signs Vitals Vital Signs Date Temp Pulse Resp B/P (MAP) Pulse Ox O2 O2 Flow FiO2 Time Delivery Rate 10/11/18 98.2 74 20 121/75 96 04:00 (90) 10/10/18 21 06:21 10/10/18 Nasal 2.0 01:21 Cannula Intake and Output 10/10/18 10/10/18 10/11/18 1515:00 23:00 07:00 IntakeIntake Total 800 ml OutputOutput Total 3 ml BalanceBalance 797 ml Exam Constitutional: alert, oriented Psych: no complaints, nl mood/affect Head: normocephalic, atraumatic Neck: supple; No jvd Respiratory: clear to auscultation; No crackles/rales Cardiovascular: regular rate and rhythm; No edema Gastrointestinal: soft, non-tender; No distended Neurological: nl mental status, nl speech Labs Result Diagram: 10/10/18 19310/10/18 0718 Results 24hrs Laboratory Tests Test 10/10/18 07:18 10/10/18 08:20 10/10/18 11:43 10/10/18 17:25 White Blood Count 8.8 Red Blood Count 4.45 Hemoglobin 13.6 Hematocrit 41.1 Mean Corpuscular 92.4 Volume Mean Corpuscular 30.6 Hemoglobin Mean Corpuscular 33.1 Hemoglobin Concent Red Cell 12.3 Distribution Width Platelet Count 180 Mean Platelet Volume 10.4 Immature 0.500 H Granulocytes % Neutrophils % 57.5 Lymphocytes % 31.3 Monocytes % 6.8 Eosinophils % 3.4 Basophils % 0.5 Nucleated Red Blood 0.0 Cells % Immature 0.040 H Granulocytes # Neutrophils # 5.1 Lymphocytes # 2.8 Monocytes # 0.6 Eosinophils # 0.3 Basophils # 0.0 Nucleated Red Blood 0.0 Cells # Sodium Level 143 Potassium Level 4.5 Chloride Level 103 Carbon Dioxide Level 30 Anion Gap 10 Blood Urea Nitrogen 13 Creatinine 0.73 Est Glomerular > 60 Filtrat Rate mL/min Glucose Level 141 Hemoglobin A1c 6.8 H Calcium Level 9.9 Magnesium Level 2.3 Total Bilirubin 0.5 Direct Bilirubin 0.00 Indirect Bilirubin 0.5 Aspartate Amino 22 Transf (AST/SGOT) Alanine 25 Aminotransferase (AL T/SGPT) Alkaline Phosphatase 79 Creatine Kinase 46 Creatine Kinase 2.2 Index Creatinine Kinase MB 1.02 (Mass) Troponin I 0.092 0.190 *H Total Protein 7.5 Albumin 4.5 Globulin 3.00 Albumin/Globulin 1.50 Ratio Triglycerides Level 168 H Cholesterol Level 141 LDL Cholesterol, 62 Calculated HDL Cholesterol 45 Cholesterol/HDL 3.1 Ratio Thyroid Stimulating 9.730 H Hormone (TSH) Bedside Glucose 133 115 Test 10/10/18 17:39 10/10/18 19:31 10/11/18 02:30 10/11/18 06:20 Bedside Glucose 103 97 White Blood Count 10.5 Pending Red Blood Count 4.51 Pending Hemoglobin 13.9 Pending Hematocrit 41.9 Pending Mean Corpuscular 92.9 Pending Volume Mean Corpuscular 30.8 Pending Hemoglobin Mean Corpuscular 33.2 Pending Hemoglobin Concent Red Cell 12.4 Pending Distribution Width Platelet Count 195 Pending Mean Platelet Volume 10.4 Pending Immature 0.200 Granulocytes % Neutrophils % 61.6 Lymphocytes % 29.4 Monocytes % 5.8 Eosinophils % 2.7 Basophils % 0.3 Nucleated Red Blood 0.0 Cells % Immature 0.020 Granulocytes # Neutrophils # 6.5 Lymphocytes # 3.1 H Monocytes # 0.6 Eosinophils # 0.3 Basophils # 0.0 Nucleated Red Blood 0.0 Cells # Prothrombin Time 12.5 Prothrombin Time 1.0 Ratio INR International 0.92 Normalized Ratio Activated 38.3 H Partial Thromboplast Time Medications Medications Current Medications IV Flush (NS 3 ml) 3 ml PER PROTOCOL IV ; Start 10/10/18 at 02:00 Ondansetron HCl (Zofran Inj) 4 mg Q6H PRN IV NAUSEA/VOMITING; Start 10/10/18 at 02:00 Nitroglycerin (Nitroglycerin (Sl Tab) 0.4 Mg) 1 tab Q5M PRN SL .CHEST PAIN; Start 10/10/18 at 02:00 Acetaminophen (Tylenol Tab) 650 mg Q6H PRN PO .PAIN 1-3 OR TEMP Last admini stered on 10/10/18at 04:35; Admin Dose 650 MG; Start 10/10/18 at 02:00 Albuterol/ Ipratropium (Duoneb) 3 ml Q2H RESP THERAPY PRN HHN SHORTNESS OF BREATH; Start 10/10/18 at 02:00 Aspirin (Halfprin) 81 mg DAILY PO Last administered on 10/10/18 08:23; Admin Dose 81 MG; Start 10/10/18 at 09:00 Clopidogrel Bisulfate (plaVIX) 75 mg DAILY PO Last administered on 10/10/18 08:21; Admin Dose 75 MG; Start 10/10/18 at 09:00 Fluticasone Propionate (Flonase 0.05% Nasal) 1 spray BID NASAL Last administere d on 10/10/18 21:38; Admin Dose 1 SPRAY; Start 10/10/18 at 09:00 Losartan Potassium (Cozaar) 25 mg DAILY PO Last administered on 10/10/18 08:23; Admin Dose 25 MG; Start 10/10/18 at 09:00 Atorvastatin Calcium (Lipitor) 80 mg DAILY@21 PO Last administered on 10/10/18 21:38; Admin Dose 80 MG; Start 10/10/18 at 21:00 Diagnostic Test (Pha) (Accu-Chek) 1 ea AC MEALS AND BEDTIME XX Last administer ed on 10/10/18at 17:25; Admin Dose 1 EA; Start 10/10/18 at 07:25 Miscellaneous Information 1 ea NOTE XX ; Start 10/10/18 at 04:00 Glucose (Glutose) 15 gm Q15M PRN PO DECREASED GLUCOSE; Start 10/10/18 at 04:00 Glucose (Glutose) 22.5 gm Q15M PRN PO DECREASED GLUCOSE; Start 10/10/18 at 04:00 Dextrose (D50w Syringe) 25 ml Q15M PRN IV DECREASED GLUCOSE; Start 10/10/18 at 04:00 Dextrose (D50w Syringe) 50 ml Q15M PRN IV DECREASED GLUCOSE; Start 10/10/18 at 04:00 Glucagon (Glucagen) 1 mg Q15M PRN IM DECREASED GLUCOSE; Start 10/10/18 at 04:00 Glucose (Glutose) 15 gm Q15M PRN BUCCAL DECREASED GLUCOSE; Start 10/10/18 at 04:00 Diagnostic Test (Pha) (Accu-Chek) 1 ea 02 XX ; Start 10/11/18 at 02:00 Insulin Aspart (Novolog Insulin Pen) NOVOLOG *MILD* ALGORITHM WITH MEALS BEDTIME SC ; Start 10/10/18 at 17:55 Metoprolol Tartrate (Lopressor) 25 mg BID PO Last administered on 10/10/18at 18:43; Admin Dose 25 MG; Start 10/10/18 at 17:00 SEAMUS HERNANDEZ October 11, 2018 07:01
[2018-10-11] MEDS ORDERED: IODIXANOL LOCM 100 ML BTL ONE ×2 (07:28→08:40)
[2018-10-11] MEDS ORDERED: FENTAnyl 50 MCG/ML VIAL ONE (07:28)
[2018-10-11] MEDS ORDERED: HEPARIN 1000 UNITS/ML 10 ML INJ ONE (07:28)
[2018-10-11] MEDS ORDERED: MIDAZOLAM 1 MG/ML 2 ML INJ ONE (07:28)
[2018-10-11] MEDS ORDERED: LIDOCAINE 1% (MDV) 20 ML INJ ONE (07:28)
[2018-10-11] MEDS ORDERED: VERAPAMIL 5 MG INJ ONE (07:29)
[2018-10-11] MEDS ORDERED: NITROGLYCERIN (IC) 100 MCG/ML INJ ONE (07:29)
[2018-10-11] MEDS: INSULIN ASPART [NOVOLOG] 3 ML PEN SC SCH ×4 (07:50→20:36)
[2018-10-11] MEDS ORDERED: ASPIRIN 81 MG TAB ONE (08:10)
[2018-10-11] MEDS ORDERED: CLOPIDOGREL 300 MG TAB ONE (08:10)
[2018-10-11] MEDS ORDERED: BIVALIRUDIN 250MG /NS 50 ML 50 ML IVPB ONE (08:10)
[2018-10-11] MEDS ORDERED: IOHEXOL 350MG/ML 50 ML BTL ONE (08:40)
[2018-10-11] MEDS: LOSARTAN 25 MG TAB PO SCH (09:00)
[2018-10-11] MEDS: ASPIRIN (EC) 81 MG TAB PO SCH (09:00)
[2018-10-11] MEDS: CLOPIDOGREL 75 MG TAB PO SCH (09:00)
[2018-10-11] MEDS: FLUTICASONE 0.05% 16 GM NAS SPRAY NASAL SCH ×2 (09:00→20:37)
[2018-10-11] MEDS: METOPROLOL (XL) 25 MG TAB PO SCH (09:00)
[2018-10-11] MEDS ORDERED: SOD CHLORIDE 0.9% 1,000 ML IV SCH (09:30)
--- NOTE | 2018-10-11 09:40 | OPR ---
Date/Time of Note Date/Time of Note DATE: 10/11/18 TIME: 09:20 Operative Report Preoperative Diagnosis NSTEMI Postoperative Diagnosis NSTEMI Operation/Procedure Performed see details Surgeon see signature line Director Of Capital Giving none Anesthesia Type: moderate sedation Estimated Blood Loss: minimal Transfusion none Specimen none Grafts/Implants none Complications none Procedure Description Procedure Date:10/11/2018 Venture Capitalist/surgeon: Daquan Lopez MD. Procedures Performed: 1)Left heart catheterization with selective left and right coronary angiography. 2)Balloon angioplasty and stenting of the proximal PLV with a Synergy 2.75 x 12 stent. 3)Balloon angioplasty and stenting of the mid LAD with a Synergy 2.25 x 12 stent. Pre-operative Diagnosis:NSTEMI Post-operative Diagnosis: same s/p PCI of LAD and PLV Indications: 68 yo F with CAD s/p prior PCI, DM, cerebral aneurysm s/p coiling, HTN, who presented with chest pain and was found to have an NSTEMI (trop 0.2) Description of Procedure: After informed consent, the patient was brought to the cardiac catheterization lab. The procedure site was prepped and draped in usual manner. The patient was premedicated with versed 1 mg and fentanyl 25 mcg. 2 mL lidocaine was injected into the left wrist. Next using the posterior wall technique, the 6/5 albanian sheath was inserted into the left radial artery. Next using the JL3.5 and JR4, selective angiography of the left and right coronary arteries were obtained. The JR was advanced into the LV and hemodynamics obtained. No LV gram done. The decision was made to proceed with PCI of the PLV first as it seemed to be the vessel at most jeopardy. A 6 albanian JR 4 guide was advanced and engaged into the right coronary artery. After appropriate anticoagulation and antiplatelets were given, the PT 2 LS angioplasty wire was advanced past the lesion. Next the 2.0 X 12 balloon was used to dilate the lesion times 2 at a maximum of 8 norma. Subsequently, the Synergy 2.75 x 12 stent was advanced to the lesion and deployed at 11 norma. Next the stent was post dilated with the 3.0 x X 8 noncompliant balloon times 2 at a maximum of 12 norma. Final angiography revealed JERRY 3 flow, no edge dissection, and appropriate stent expansion. The decision was made to proceed with PCI of the mid LAD. A JL 3.0 guide was advanced and engaged into the left coronary artery. After appropriate anticoagulation and antiplatelets were given, the Pt 2 LS angioplasty wire was advanced past the lesion. Next the 2.0 X 8 balloon was used to dilate the lesion times 1 at a maximum of 8 norma. Subsequently, the Synergy 2.25 x 12 stent was advanced to the lesion and deployed at 12 norma. Next the stent was post dilated with the 2.5 X 8 noncompliant balloon times 2 at a maximum of 12 norma. Final angiography revealed JERRY 3 flow, no edge dissection, and appropriate stent expansion. Next all equipment was removed and hemostasis was achieved by TR band. Findings: Anatomy/Hemodynamics: Left main: normal LAD: calcified vessel with 20-30% plaque proximally, followed by mid 95% eccentric focal lesion, distal diffuse 50-60% disease Diagonal: small vessel with diffuse severe disease Circumflex:prox stent 20% ISR Obtuse marginal:small vessels with diffuse disease RCA:calcified vessel, mid 40% eccentric lesion PDA:ostial 30% PLV:very large bifurcating vessel with prox 99% with JERRY 2-3 flow LV angiography:not done LV-Ao:no gradient LVEDP:15 mmHg Contrast used:160 mL Fluoroscopy time:17.8min Medications used: Versed 1 Fentanyl 25 Radial cocktail: heparin 2000 units, NTG 200mcg, verapamil 2.5mg Angiomax Plavix 600mg ASA 81mg Equipment used: 6 albanian JL 3.0 guide and JR 4 guide PT 2 LS angioplasty wire 2 x 12, 2.0 x 8 balloon Synergy 2.75 x 12 drug eluting stent (PLV) Synergy 2.25 x 12 drug eluting stent (mid LAD) 3.0 x 8, 2.5 x 8 noncompliant balloon Estimated blood loss<10 mL. Specimen: none Grafts/implants: none Complications: none Assessment: NSTEMI/CAD: s/p PCI of mid LAD and prox PLV. Residual small vessel CAD not am enable to PCI Plan: -ASA 81mg lifelong -plavix 75mg at least 1 year DAQUAN LOPEZ October 11, 2018 09:39
--- NOTE | 2018-10-11 11:02 | PN ---
Date/Time of Note Date/Time of Note DATE: 10/11/18 TIME: 10:58 Assessment/Plan VTE Prophylaxis Risk score (from Ns)>0 risk: 2 SCD applied (from Ns): Yes Pharmacological prophylaxis: other Lines/Catheters IV Catheter Type (from [facility]): Peripheral IV Assessment/Plan Hospital Course S: Patient had heart cath performed earlier this morning, per discussion with cardiology team, and stent placed. O: VS- see below PE: -Unable to be performed today as the patient is presently off the floor at heart cath procedure Head CT: IMPRESSION: 1. 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 This causes significant star artifact. No obvious acute intracranial hemorrhage or acute territorial infarct is seen. 3. Age-related cortical and central atrophy and moderate to severe small vessel ischemic change. 4. Old bilateral basal ganglia lacunar infarcts. 5. Cerebral arterial sclerosis Date/Time of Note Date/Time of Note DATE: 10/11/18 TIME: 09:20 Operative Report Preoperative Diagnosis NSTEMI Postoperative Diagnosis NSTEMI Operation/Procedure Performed Procedures Performed: 1)Left heart catheterization with selective left and right coronary angiography. 2)Balloon angioplasty and stenting of the proximal PLV with a Synergy 2.75 x 12 stent. 3)Balloon angioplasty and stenting of the mid LAD with a Synergy 2.25 x 12 stent. Assessment/Plan: 68-year-old female presents with: 1. Chest pain: Thus far troponins negative x3, both fourth troponin was elevated, and given the symptoms again patient was taken to the [facility] [employer] earlier this morning where stenting was performed after significant blockage was found. -For now follow-up left heart cath post procedure recommendations -Continue home dual antiplatelet, ARB, statin. As needed nitro. -Follow-up further recommendations from cardiology consult team 2. History of CAD with prior stent: See #1 3. Headache: Symptoms still present, head CT did not show any acute findings -Monitor for now, continue pain medications as needed 4. History of hemorrhagic stroke, per patient: Diagnosed at [facility] in 2018. Brain CT this admission shows interval coil embolization of right supraclinoid aneurysm. -Monitor for now, see #3 5. Right perihilar consolidation-seen on chest x-ray -For now continue empiric IV antibiotic -If worsens, consider chest CT for further evaluation 6. History of dyslipidemia: -Follow-up fasting lipid. -Continue statin and fenofibrate 7. Type 2 diabetes: A1c was 6.8, sugars are stable. -Continue home med Result Diagram: 10/11/18 0620 10/11/18 0620 Results 24hrs Laboratory Tests Test 10/10/18 11:43 10/10/18 17:25 10/10/18 17:39 10/10/18 19:31 Bedside Glucose 115 103 Troponin I 0.190 *H White Blood Count 10.5 Red Blood Count 4.51 Hemoglobin 13.9 Hematocrit 41.9 Mean Corpuscular 92.9 Volume Mean Corpuscular 30.8 Hemoglobin Mean Corpuscular 33.2 Hemoglobin Concent Red Cell 12.4 Distribution Width Platelet Count 195 Mean Platelet Volume 10.4 Immature 0.200 Granulocytes % Neutrophils % 61.6 Lymphocytes % 29.4 Monocytes % 5.8 Eosinophils % 2.7 Basophils % 0.3 Nucleated Red Blood 0.0 Cells % Immature 0.020 Granulocytes # Neutrophils # 6.5 Lymphocytes # 3.1 H Monocytes # 0.6 Eosinophils # 0.3 Basophils # 0.0 Nucleated Red Blood 0.0 Cells # Prothrombin Time 12.5 Prothrombin Time 1.0 Ratio INR International 0.92 Normalized Ratio Activated 38.3 H Partial Thromboplast Time Test 10/10/18 21:04 10/11/18 02:30 10/11/18 06:20 10/11/18 09:53 Bedside Glucose 95 97 114 White Blood Count 9.0 Red Blood Count 4.59 Hemoglobin 14.0 Hematocrit 42.3 Mean Corpuscular 92.2 Volume Mean Corpuscular 30.5 Hemoglobin Mean Corpuscular 33.1 Hemoglobin Concent Red Cell 12.4 Distribution Width Platelet Count 196 Mean Platelet Volume 10.6 H Immature 0.200 Granulocytes % Neutrophils % 48.5 Lymphocytes % 40.6 Monocytes % 7.0 Eosinophils % 3.3 Basophils % 0.4 Nucleated Red Blood 0.0 Cells % Immature 0.020 Granulocytes # Neutrophils # 4.4 Lymphocytes # 3.7 H Monocytes # 0.6 Eosinophils # 0.3 Basophils # 0.0 Nucleated Red Blood 0.0 Cells # Activated > 180.0 *H Partial Thromboplast Time Sodium Level 140 Potassium Level 4.0 Chloride Level 105 Carbon Dioxide Level 23 Anion Gap 12 Blood Urea Nitrogen 13 Creatinine 0.65 Est Glomerular > 60 Filtrat Rate mL/min Glucose Level 101 # Calcium Level 10.1 Phosphorus Level 3.9 Magnesium Level 2.0 Exam/Review of Systems Exam Vitals Vital Signs Date Temp Pulse Resp B/P (MAP) Pulse Ox O2 O2 Flow FiO2 Time Delivery Rate 10/11/18 68 29 112/70 96 Room Air 10:31 (84) 10/11/18 98.0 09:36 10/10/18 21 06:21 10/10/18 2.0 01:21 Intake and Output 10/10/18 10/10/18 10/11/18 1515:00 23:00 07:00 IntakeIntake Total 800 ml OutputOutput Total 3 ml BalanceBalance 797 ml Results Results 24hrs Laboratory Tests Test 10/10/18 11:43 10/10/18 17:25 10/10/18 17:39 10/10/18 19:31 Bedside Glucose 115 103 Troponin I 0.190 *H White Blood Count 10.5 Red Blood Count 4.51 Hemoglobin 13.9 Hematocrit 41.9 Mean Corpuscular 92.9 Volume Mean Corpuscular 30.8 Hemoglobin Mean Corpuscular 33.2 Hemoglobin Concent Red Cell 12.4 Distribution Width Platelet Count 195 Mean Platelet Volume 10.4 Immature 0.200 Granulocytes % Neutrophils % 61.6 Lymphocytes % 29.4 Monocytes % 5.8 Eosinophils % 2.7 Basophils % 0.3 Nucleated Red Blood 0.0 Cells % Immature 0.020 Granulocytes # Neutrophils # 6.5 Lymphocytes # 3.1 H Monocytes # 0.6 Eosinophils # 0.3 Basophils # 0.0 Nucleated Red Blood 0.0 Cells # Prothrombin Time 12.5 Prothrombin Time 1.0 Ratio INR International 0.92 Normalized Ratio Activated 38.3 H Partial Thromboplast Time Test 10/10/18 21:04 10/11/18 02:30 10/11/18 06:20 10/11/18 09:53 Bedside Glucose 95 97 114 White Blood Count 9.0 Red Blood Count 4.59 Hemoglobin 14.0 Hematocrit 42.3 Mean Corpuscular 92.2 Volume Mean Corpuscular 30.5 Hemoglobin Mean Corpuscular 33.1 Hemoglobin Concent Red Cell 12.4 Distribution Width Platelet Count 196 Mean Platelet Volume 10.6 H Immature 0.200 Granulocytes % Neutrophils % 48.5 Lymphocytes % 40.6 Monocytes % 7.0 Eosinophils % 3.3 Basophils % 0.4 Nucleated Red Blood 0.0 Cells % Immature 0.020 Granulocytes # Neutrophils # 4.4 Lymphocytes # 3.7 H Monocytes # 0.6 Eosinophils # 0.3 Basophils # 0.0 Nucleated Red Blood 0.0 Cells # Activated > 180.0 *H Partial Thromboplast Time Sodium Level 140 Potassium Level 4.0 Chloride Level 105 Carbon Dioxide Level 23 Anion Gap 12 Blood Urea Nitrogen 13 Creatinine 0.65 Est Glomerular > 60 Filtrat Rate mL/min Glucose Level 101 # Calcium Level 10.1 Phosphorus Level 3.9 Magnesium Level 2.0 Medications Medication Current Medications IV Flush (NS 3 ml) 3 ml PER PROTOCOL IV ; Start 10/10/18 at 02:00 Ondansetron HCl (Zofran Inj) 4 mg Q6H PRN IV NAUSEA/VOMITING; Start 10/10/18 at 02:00 Nitroglycerin (Nitroglycerin (Sl Tab) 0.4 Mg) 1 tab Q5M PRN SL .CHEST PAIN; Start 10/10/18 at 02:00 Acetaminophen (Tylenol Tab) 650 mg Q6H PRN PO .PAIN 1-3 OR TEMP Last administered on 10/10/18at 04:35; Admin Dose 650 MG; Start 10/10/18 at 02:00 Albuterol/ Ipratropium (Duoneb) 3 ml Q2H RESP THERAPY PRN HHN SHORTNESS OF BREATH; Start 10/10/18 at 02:00 Aspirin (Halfprin) 81 mg DAILY PO Last administered on 10/10/18 08:23; Admin Dose 81 MG; Start 10/10/18 at 09:00 Clopidogrel Bisulfate (plaVIX) 75 mg DAILY PO Last administered on 10/10/18at 08:21; Admin Dose 75 MG; Start 10/10/18 at 09:00 Fluticasone Propionate (Flonase 0.05% Nasal) 1 spray BID NASAL Last administered on 10/10/18 21:38; Admin Dose 1 SPRAY; Start 10/10/18 at 09:00 Losartan Potassium (Cozaar) 25 mg DAILY PO Last administered on 10/10/18at 08:23; Admin Dose 25 MG; Start 10/10/18 at 09:00 Atorvastatin Calcium (Lipitor) 80 mg DAILY@21 PO Last administered on 10/10/18at 21:38; Admin Dose 80 MG; Start 5/21/19 at 21:00 Diagnostic Test (Pha) (Accu-Chek) 1 ea AC MEALS AND BEDTIME XX Last administered on 10/10/18at 17:25; Admin Dose 1 EA; Start 10/10/18 at 07:25 Miscellaneous Information 1 ea NOTE XX ; Start 10/10/18 at 04:00 Glucose (Glutose) 15 gm Q15M PRN PO DECREASED GLUCOSE; Start 10/10/18 at 04:00 Glucose (Glutose) 22.5 gm Q15M PRN PO DECREASED GLUCOSE; Start 10/10/18 at 04:00 Dextrose (D50w Syringe) 25 ml Q15M PRN IV DECREASED GLUCOSE; Start 10/10/18 at 04:00 Dextrose (D50w Syringe) 50 ml Q15M PRN IV DECREASED GLUCOSE; Start 10/10/18 at 04:00 Glucagon (Glucagen) 1 mg Q15M PRN IM DECREASED GLUCOSE; Start 10/10/18 at 04:00 Glucose (Glutose) 15 gm Q15M PRN BUCCAL DECREASED GLUCOSE; Start 10/10/18 at 04:00 Diagnostic Test (Pha) (Accu-Chek) 1 ea 02 XX ; Start 10/11/18 at 02:00 Insulin Aspart (Novolog Insulin Pen) NOVOLOG *MILD* ALGORITHM WITH MEALS BEDTIME SC ; Start 10/10/18 at 17:55 Metoprolol Succinate (Toprol Xl) 25 mg DAILY PO ; Start 10/11/18 at 09:00 Sodium Chloride 1,000 ml @ 75 mls/hr [id number] IV Last administered on 10/11/18at 10:28; Admin Dose 75 MLS/HR; Start 10/11/18 at 09:30; Stop 10/11/18 at 22:49 GRISEL REID October 11, 2018 11:02
[2018-10-11] MEDS: ATORVASTATIN 80 MG TAB PO SCH (20:37)
[2018-10-12] VITALS (11 sets, daily range): BP systolic 99–132; BP diastolic 53–89; PULSE 78–89; RESP 11–24
[2018-10-12] MEDS: ACCU-CHEK XX SCH ×3 (01:57→10:48)
[2018-10-12] MEDS: INSULIN ASPART [NOVOLOG] 3 ML PEN SC SCH ×2 (07:35→10:48)
--- NOTE | 2018-10-12 09:29 | CONS ---
Assessment/Plan Assessment/Plan Hospital Course (Demo Recall) NSTEMI: Trops increased to 0.19 so cardiac cath was performed and now s/p PCI of 99% prox PLV and 95% mid LAD. Doing well. No symptoms. CAD s/p NSTEMI/PCI of Cx 2010 and as above CVA with cerebral aneurysm s/p coiling 11/2017 at [facility]. Family denies actual bleeding but she had stroke like symptoms. Apparently was on Effient 5mg which is half dose. Will switch to plavix instead. No Brilinta as I am concerned about her intracranial process and risk of bleeding and no Effient with prior stroke HTN DM HL -ok for d/c home -I will have my office send the plavix to her pharmacy -pt's daughter will inform the neurologist about the switch to plavix and inform me if any issues -metoprolol succ 25mg daily -continue ASA, plavix -lipitor 80mg -losartan 25mg Consultation Date/Type/Reason Admit Date/Time October 11, 2018 at 01:57 Initial Consult Date 10/10/18 Type of Consult Cardiology Requesting Provider: GRISEL REID Date/Time of Note DATE: 10/12/18 TIME: 09:20 24 HR Interval Summary Free Text/Dictation s/p PCI x 2 yesterday. Doing very well. No chest pain or SOB. Feels well. Labs great. Very thankful Exam/Review of Systems Vital Signs Vitals Vital Signs Date Temp Pulse Resp B/P (MAP) Pulse Ox O2 O2 Flow FiO2 Time Delivery Rate 10/12/18 85 21 115/79 99 Room Air 08:00 (91) 10/12/18 98.3 04:00 10/10/18 21 06:21 10/10/18 2.0 01:21 Intake and Output 10/11/18 10/11/18 10/12/18 1515:00 23:00 07:00 IntakeIntake Total 375 ml 625 ml OutputOutput Total 250 ml BalanceBalance 375 ml 375 ml Exam Constitutional: alert, oriented Psych: no complaints, nl mood/affect Head: normocephalic, atraumatic Neck: supple; No jvd Respiratory: clear to auscultation; No crackles/rales, No diminished breath sounds Cardiovascular: regular rate and rhythm; No edema Gastrointestinal: soft, non-tender; No distended Neurological: nl mental status, nl speech Labs Result Diagram: 10/12/18 0434 10/12/18 0434 Results 24hrs Laboratory Tests Test 10/11/18 09:53 10/11/18 11:36 10/11/18 16:41 10/11/18 20:36 Bedside Glucose 114 111 97 102 Test 10/12/18 01:54 10/12/18 04:34 10/12/18 06:58 Bedside Glucose 104 132 White Blood Count 8.2 Red Blood Count 4.27 Hemoglobin 13.0 Hematocrit 39.0 Mean Corpuscular 91.3 Volume Mean Corpuscular 30.4 Hemoglobin Mean Corpuscular 33.3 Hemoglobin Concent Red Cell 12.5 Distribution Width Platelet Count 164 Mean Platelet Volume 10.3 Immature 0.200 Granulocytes % Neutrophils % 60.8 Lymphocytes % 28.2 Monocytes % 7.2 Eosinophils % 2.9 Basophils % 0.7 Nucleated Red Blood 0.0 Cells % Immature 0.020 Granulocytes # Neutrophils # 5.0 Lymphocytes # 2.3 Monocytes # 0.6 Eosinophils # 0.2 Basophils # 0.1 Nucleated Red Blood 0.0 Cells # Sodium Level 140 Potassium Level 3.9 Chloride Level 108 Carbon Dioxide Level 23 Anion Gap 9 Blood Urea Nitrogen 13 Creatinine 0.65 Est Glomerular > 60 Filtrat Rate mL/min Glucose Level 114 Calcium Level 9.6 Phosphorus Level 3.6 Magnesium Level 1.9 Medications Medications Current Medications IV Flush (NS 3 ml) 3 ml PER PROTOCOL IV ; Start 10/10/18 at 02:00 Ondansetron HCl (Zofran Inj) 4 mg Q6H PRN IV NAUSEA/VOMITING; Start 10/10/18 at 02:00 Nitroglycerin (Nitroglycerin (Sl Tab) 0.4 Mg) 1 tab Q5M PRN SL .CHEST PAIN; Start 10/10/18 at 02:00 Acetaminophen (Tylenol Tab) 650 mg Q6H PRN PO .PAIN 1-3 OR TEMP Last administered on 10/10/18at 04:35; Admin Dose 650 MG; Start 10/10/18 at 02:00 Albuterol/ Ipratropium (Duoneb) 3 ml Q2H RESP THERAPY PRN HHN SHORTNESS OF BREATH; Start 10/10/18 at 02:00 Aspirin (Halfprin) 81 mg DAILY PO Last administered on 10/10/18at 08:23; Admin Dose 81 MG; Start 10/10/18 at 09:00 Clopidogrel Bisulfate (plaVIX) 75 mg DAILY PO Last administered on 10/10/18at 08:21; Admin Dose 75 MG; Start 10/10/18 at 09:00 Fluticasone Propionate (Flonase 0.05% Nasal) 1 spray BID NASAL Last administered on 10/11/18at 20:37; Admin Dose 1 SPRAY; Start 10/10/18 at 09:00 Losartan Potassium (Cozaar) 25 mg DAILY PO Last administered on 10/10/18at 08:23; Admin Dose 25 MG; Start 10/10/18 at 09:00 Atorvastatin Calcium (Lipitor) 80 mg DAILY@21 PO Last administered on 10/11/18at 20:37; Admin Dose 80 MG; Start 10/10/18 at 21:00 Diagnostic Test (Pha) (Accu-Chek) 1 ea AC MEALS AND BEDTIME XX Last administered on 10/11/18at 11:41; Admin Dose 1 EA; Start 10/10/18 at 07:25 Miscellaneous Information 1 ea NOTE XX ; Start 10/10/18 at 04:00 Glucose (Glutose) 15 gm Q15M PRN PO DECREASED GLUCOSE; Start 10/10/18 at 04:00 Glucose (Glutose) 22.5 gm Q15M PRN PO DECREASED GLUCOSE; Start 10/10/18 at 04:00 Dextrose (D50w Syringe) 25 ml Q15M PRN IV DECREASED GLUCOSE; Start 10/10/18 at 04:00 Dextrose (D50w Syringe) 50 ml Q15M PRN IV DECREASED GLUCOSE; Start 10/10/18 at 04:00 Glucagon (Glucagen) 1 mg Q15M PRN IM DECREASED GLUCOSE; Start 10/10/18 at 04:00 Glucose (Glutose) 15 gm Q15M PRN BUCCAL DECREASED GLUCOSE; Start 10/10/18 at 04:00 Diagnostic Test (Pha) (Accu-Chek) 1 ea 02 XX ; Start 10/11/18 at 02:00 Insulin Aspart (Novolog Insulin Pen) NOVOLOG *MILD* ALGORITHM WITH MEALS BEDTIME SC ; Start 10/10/18 at 17:55 Metoprolol Succinate (Toprol Xl) 25 mg DAILY PO ; Start 10/11/18 at 09:00 KOSHKARYAN,SEAMUS October 12, 2018 09:29
[2018-10-12] MEDS: ASPIRIN (EC) 81 MG TAB PO SCH (09:30)
[2018-10-12] MEDS: LOSARTAN 25 MG TAB PO SCH (09:30)
[2018-10-12] MEDS: CLOPIDOGREL 75 MG TAB PO SCH (09:30)
[2018-10-12] MEDS: METOPROLOL (XL) 25 MG TAB PO SCH (09:31)
[2018-10-12] MEDS: FLUTICASONE 0.05% 16 GM NAS SPRAY NASAL SCH (09:31)
--- NOTE | 2018-10-12 09:36 | PDOCDIS ---
Discharge Instructions CONDITION [id number] Patient Condition: Iefbr8s Stable HOME CARE INSTRUCTIONS: [id number] Diet Instructions: [id number] Low Fat /Cholesterol ACTIVITY: [id number] Activity Restrictions: [id number] Slowly Increase Activity Rest between Activity Avoid heavy lifting FOLLOW UP/APPOINTMENTS Follow-up Plan Please take your medications as prescribed, see your doctor in the clinic, specifically your cardiology DrChad, in the next few days. GRISEL REID October 12, 2018 09:36
[2018-10-12] MEDS ORDERED: ASPI-535 PO (09:39)
[2018-10-12] MEDS ORDERED: METO-335 PO (09:39)
[2018-10-12] MEDS ORDERED: LOSA25TA12 PO (09:39)
[2018-10-12] MEDS ORDERED: ATOR-2 PO (09:39)
--- NOTE | 2018-10-12 09:45 | DS ---
Date/Time of Note Date/Time of Note DATE: 10/12/18 TIME: 09:40 Discharge Summary Admission/Discharge Info Admit Date/Time October 11, 2018 at 01:57 Discharge Date/Time Discharge Diagnosis 1. 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 History of CAD with prior stent: See #1 3. Headache 4. History of hemorrhagic stroke, per patient: Diagnosed at [facility] in 2018. Brain CT this admission shows interval coil embolization of right supraclinoid aneurysm. 5. Right perihilar consolidation 6. History of dyslipidemia: 7. Type 2 diabetes: A1c was 6.8, sugars are stable. Patient Condition: Stable Procedures Head CT: IMPRESSION: 1. 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 This causes significant star artifact. No obvious acute intracranial hemorrhage or acute territorial infarct is seen. 3. Age-related cortical and central atrophy and moderate to severe small vessel ischemic change. 4. Old bilateral basal ganglia lacunar infarcts. 5. Cerebral arterial sclerosis Date/Time of Note Date/Time of Note DATE: 10/11/18 TIME: 09:20 Operative Report Preoperative Diagnosis NSTEMI Postoperative Diagnosis NSTEMI Operation/Procedure Performed Procedures Performed: 1)Left heart catheterization with selective left and right coronary angiography. 2)Balloon angioplasty and stenting of the proximal PLV with a Synergy 2.75 x 12 stent. 3)Balloon angioplasty and stenting of the mid LAD with a Synergy 2.25 x 12 stent. Hx of Present Illness 68-year-old male with a history of hypertension, type 2 diabetes, dyslipidemia, CAD with stent who was brought to the ER for chest pain. Chest pain started in the morning and described as pressure-like pain and is nonradiating. Patient also reported shortness of breath. During my questioning, she also complains of headache. She told me that she was diagnosed with stroke and "blood in my brain"at [facility] in 2018. Denied any focal weakness, slurred speech, facial droop. When EMS arrived he was given a sublingual nitro and aspirin was complete relief of chest pain. When presented to the ER, vitals were stable. EKG without ST-T wave abnormalities and first troponin negative. Chest x-ray shows right perihilar consolidation and mild pulmonary vascular congestion. Hospital Course Patient was admitted to telemetry floor. Initially the first troponin x3 were negative, but the fourth troponin was positive. Laboratory Immunologist was concerned about this, along with the patient's symptoms of weakness and shortness of breath on exertion. Thus the patient went to the cardiac Truck Trailer Mechanic and was found with new coronary blockage and had new stent placed. Patient tolerated the procedure well. Her A1c was 6.8, sugars were stable. Her vital signs remained stable. Afterwards she was monitored in the intensive care unit. She was able to ambulate back at baseline status, tolerate diet. After getting clearance from the real estate consultant cardiology team, patient will be discharged home today in improved condition. See below for full list of discharge medications. Home Meds Active Scripts Atorvastatin* (Atorvastatin*) 80 Mg Tablet, 80 MG PO DAILY@21, #30 TAB 7 Refills Prov:GRISEL REID S. 10/12/18 Metoprolol Succinate* (Toprol XL*) 25 Mg Tab.sr.24h, 25 MG PO DAILY, #30 TAB 7 Refills Prov:GRISEL REID S. 10/12/18 Aspirin Ec (Aspir 81) 81 Mg Tablet.dr, 81 MG PO DAILY, #30 TAB 7 Refills Prov:GRISEL REID S. 10/12/18 Losartan Potassium* (Losartan Potassium*) 25 Mg Tablet, 25 MG PO DAILY, #30 TAB 7 Refills Prov:GRISEL REID S. 10/12/18 Reported Medications Fluticasone Propionate* (Fluticasone Propionate* Nasal) 50 Mcg/Aladdin - 16 Gm Aladdin.susp, 1 SPRAY NASAL BID, #1 BOTTLE TO EACH NOSTRIL 10/10/18 Sitagliptin* (Januvia*) 100 Mg Tablet, 100 MG PO DAILY, #30 TAB 10/10/18 Metformin* (Glucophage*) 1,000 Mg Tablet, 1000 MG PO BID, #60 TAB 10/10/18 Clopidogrel Bisulfate (Plavix) 75 Mg Tablet 07/21/10 Discontinued Reported Medications Rosuvastatin Calcium* (Crestor*) 20 Mg Tablet, 20 MG PO QHS, #30 TAB 10/10/18 Prasugrel Hydrochloride* (Effient*) 5 Mg Tablet, 5 MG PO DAILY, TAB 10/10/18 Nitroglycerin* (Nitroglycerin* SL) 0.4 Mg Tab.subl 07/21/10 Benazepril Hcl* (Benazepril Hcl*) 5 Mg Tablet 07/21/10 Glyburide* (Diabeta*) 5 Mg Tablet 07/21/10 Metoprolol Tartrate* (Lopressor*) 25 Mg Tab 07/21/10 Aspirin (Aspir-Nati) 325 Mg Tablet. 07/21/10 Calcium Citrate (Citracal) 950 Mg Tab 07/21/10 Simvastatin (Simvastatin) 40 Mg Tablet 07/21/10 Ezetimibe* (Zetia*) 10 Mg Tablet 07/21/10 Follow-up Plan Please take your medications as prescribed, see your doctor in the clinic, specifically your cardiology DrChad, in the next few days. Primary Care Provider Not On Staff Doctor Time spent on discharge: > 30 minutes Pending Labs Laboratory Tests Test 10/11/18 09:53 10/11/18 11:36 10/11/18 16:41 10/11/18 20:36 Bedside 114 111 97 102 Glucose mg/dL (70-220) mg/dL (70-220) mg/dL (70-220) mg/dL (70-220) Test 10/12/18 01:54 10/12/18 04:34 10/12/18 06:58 Bedside 104 132 Glucose mg/dL (70-220) mg/dL (70-220) White Blood 8.2 Count 10^3/ul (4.8-1 0.8) Red Blood 4.27 Count 10^6/ul (4.20- 5.40) Hemoglobin 13.0 g/dl (12.0-16. 0) Hematocrit 39.0 % (37.0-47.0) Mean 91.3 Corpuscular fl (82.0-101.0 Volume ) Mean 30.4 Corpuscular pg (29.0-33.0) Hemoglobin Mean 33.3 Corpuscular g/dl (32.0-37. Hemoglobin Conc 0) ent Red Cell 12.5 Distribution % (11.5-14.5) Width Platelet Count 164 10^3/UL (140-4 15) Mean Platelet 10.3 Volume fl (7.4-10.4) Immature 0.200 Granulocytes % % (0.001-0.429 ) Neutrophils % 60.8 % (39.0-77.0) Lymphocytes % 28.2 % (15.0-51.0) Monocytes % 7.2 % (0.0-11.0) Eosinophils % 2.9 % (0.0-7.0) Basophils % 0.7 % (0.0-2.0) Nucleated Red 0.0 Blood Cells % /100WBC (0.0-0 .0) Immature 0.020 Granulocytes # 10^3/ul (0.0-0 .031) Neutrophils # 5.0 10^3/ul (1.6-7 .5) Lymphocytes # 2.3 10^3/ul (0.8-2 .9) Monocytes # 0.6 10^3/ul (0.3-0 .9) Eosinophils # 0.2 10^3/ul (0.0-0 .5) Basophils # 0.1 10^3/ul (0.0-0 .1) Nucleated Red 0.0 Blood Cells # 10^3/ul (0.0-0 .0) Sodium Level 140 mmol/L (135-14 4) Potassium 3.9 Level mmol/L (3.5-5. 1) Chloride Level 108 mmol/L (97-110 ) Carbon Dioxide 23 Level mmol/L (21-31) Anion Gap 9 (5-13) Blood Urea 13 Nitrogen mg/dl (7-20) Creatinine 0.65 mg/dl (0.44-1. 00) Est Glomerular > 60 Filtrat mL/min (>60) Rate mL/min Glucose Level 114 mg/dl (70-220) Calcium Level 9.6 mg/dl (8.4-10. 2) Phosphorus 3.6 Level mg/dl (2.5-4.9 ) Magnesium 1.9 Level mg/dl (1.7-2.5 ) Microbiology Date/Time Source Procedure Growth Status 10/11/18 14:00 Nares MRSA Screen - Preliminary Screening in process Resulted GRISEL REID October 12, 2018 09:45
[2018-10-12] MEDS ORDERED: TICAGRELOR 90 MG TABLET PO ONE (10:00)
[2018-10-12] MEDS ORDERED: TICAGRELOR 90 MG TABLET PO SCH (21:00)
== END 2018-10-12 11:10 | disposition home or self-care (01) | DRG 247 ==
LOC: E/R 21:42 → INTOOBSV 10-10 00:35 → TEL 10-10 00:35 → OBSVTOIN 10-11 01:57 → ICU 10-11 12:24
PROVIDERS: ADMIT Internal Medicine; ATTEND Hospitalist
PROC: 4A023N7 Measurement of Cardiac Sampling and Pressure, Left Heart, Percutaneous Approach (ICD-10-PCS; 2018-10-11)
PROC: B211YZZ Fluoroscopy of Multiple Coronary Arteries using Other Contrast (ICD-10-PCS; 2018-10-11)
PROC: 027135Z Dilation of Coronary Artery, Two Arteries with Two Drug-eluting Intraluminal Devices, Percutaneous Approach (ICD-10-PCS; principal; 2018-10-11 07:30)
DX: I21.4 Non-ST elevation (NSTEMI) myocardial infarction (principal); I25.10 Atherosclerotic heart disease of native coronary artery without angina pectoris; E11.9 Type 2 diabetes mellitus without complications; E78.5 Hyperlipidemia, unspecified; R51 Headache; R91.8 Other nonspecific abnormal finding of lung field; Z86.73 Personal history of transient ischemic attack (TIA), and cerebral infarction without residual deficits; Z95.5 Presence of coronary angioplasty implant and graft
CPT/HCPCS: 36415; 70450; 71045; 80048; 80053; 80061; 82550; 82553; 82962; 83036; 83690; 83735; 83880; 84100; 84443; 84484; 85025; 85610; 85730; 87081; 93005; 93306; 93458; 99217; G0378; C1725; C1874; C1887; C9600; C9601; J0583; J1644; J1650; J1815; J2250; J2270; J3010; J7030; J7040; Q9967